=== PATIENT | female | born 1965 | race Caucasian/White ===

== ENCOUNTER 2018-09-07 14:11 | Observation (INO) | payer OTHER ==
[2018-09-07 14:53] LABS: Absolute Lymphocytes (CBC) 1.8 K/uL (0.7-4.9); Absolute Monocytes 0.4 K/uL (0.1-1.3); Absolute Neutrophil 3.1 K/uL (1.8-8.0); Basophils % 1.4 % (0-1.3); Eosinophils % 3.9 % (0-4.4); Hematocrit 42.7 % (36.0-45.0); Lymphocytes % 32.8 % (15.3-44.8); MPV 9.5 fL (7.6-11.3); Monocytes % 7.3 % (3.3-12.3); RBC Red Blood Cell Count 4.75 M/uL (3.86-4.86)
[2018-09-07 14:55] LABS: Protime INR 0.98
[2018-09-07] MEDS ORDERED: FENTANYL CITR 100 MCG/2 ML ONE ×2 (15:06→20:15)
[2018-09-07] MEDS ORDERED: ONDANSETRON 4 MG/2 ML VIAL ONE (15:06)
[2018-09-07 15:07] LABS: ALT/SGPT 18 U/L (12-78); AST/SGOT 14 U/L (15-37); Albumin 3.7 g/dL (3.4-5.0); Alkaline Phosphatase 47 U/L (45-117); BUN Blood Urea Nitrogen 21 mg/dL (7-18); Bicarbonate 28 mmol/L (21-32); Bilirubin Direct 0.1 mg/dL (0-0.2); Bilirubin Total 0.4 mg/dL (0.2-1.0); Glucose Level 77 mg/dL (74-106); Magnesium 2.1 mg/dL (1.8-2.4); NT PRO-BNP 90 pg/mL (<125); Protein, Total 6.8 g/dL (6.4-8.2); Sodium Level 145 mmol/L (136-145); Troponin (Emerg Dept Use Only) < 0.02 ng/mL (0.0-0.045)
[2018-09-07] MEDS ORDERED: ASPIRIN EC 325 MG TABLET PO ONE (15:08)
[2018-09-07 15:42] LABS: Thyroid Stimulating Hormone 5.95 uIU/mL (0.360-3.740)
--- NOTE | 2018-09-07 15:56 | RAD REPORT ---
EXAM DESCRIPTION: Radha Single View09/07/2018 3:33 pm CLINICAL HISTORY: Chest pain COMPARISON: none FINDINGS: The lungs appear clear of acute infiltrate. The heart is normal size IMPRESSION: No acute abnormalities displayed
--- NOTE | 2018-09-07 16:05 | ER ---
Nurse's Notes [facility] Name: Annamarie Miles Age: 52 yrs Sex: Female : 1965 Arrival Date: 09/07/2018 Time: 14:12 Bed 5 Private MD: Diagnosis: Chest pain, unspecified;Palpitations Presentation: 09/07 14:23 Presenting complaint: Patient states: Left sided CP that radiates into left side neck sg and left jaw as well as left shoulder, reports feeling indigestion and burning in the chest all morning, worse that the heart burn has ever been. Transition of care: patient was not received from another setting of care. Onset of symptoms was September 07, 2018. Risk Assessment: Do you want to hurt yourself or someone else? Patient reports no desire to harm self or others. Initial Sepsis Screen: Does the patient meet any 2 criteria? No. Patient's initial sepsis screen is negative. Does the patient have a suspected source of infection? No. Patient's initial sepsis screen is negative. Care prior to arrival: None. 14:23 Method Of Arrival: Wheelchair sg 14:23 Acuity: MICHELLE 2 sg Triage Assessment: 14:28 General: Appears in no apparent distress. uncomfortable, Behavior is cooperative, hj appropriate for age, anxious. Pain: Complains of pain in chest CVT RN: 14:24 LMP N/A - Hysterectomy sg Historical: - Allergies: 14:21 tramadol; sg 14:21 Codeine; sg - Home Meds: 14:21 levothyroxine 125 mcg tab 1 tab once daily [Active]; sg - PMHx: 14:21 v tach; Hashimotos; sg - PSHx: 14:21 Cholecystectomy; Hysterectomy; Knee surgery; Appendectomy; sg - Immunization history:: Adult Immunizations up to date. - Social history:: Smoking status: Patient/guardian denies using tobacco, Patient/guardian denies using alcohol. - Ebola Screening: : Patient negative for fever greater than or equal to 101.5 degrees Fahrenheit, and additional compatible Ebola Virus Disease symptoms Patient denies exposure to infectious person Patient denies travel to an Ebola-affected area in the 21 days before illness onset. Screenin:28 Abuse screen: Denies threats or abuse. Denies injuries from another. Nutritional hj screening: No deficits noted. Tuberculosis screening: No symptoms or risk factors identified. Fall Risk None identified. Assessment: 14:35 General: Appears in no apparent distress. uncomfortable, Behavior is calm, cooperative, hj appropriate for age. Pain: Complains of pain in chest Pain currently is 5 out of 10 on a pain scale. Quality of pain is described as heavy, pressure, Pain began 4 hours ago. Neuro: Level of Consciousness is awake, alert, obeys commands, Oriented to person, place, time, situation, Appropriate for age. Cardiovascular: Reports chest pain, Capillary refill < 3 seconds Patient's skin is warm and dry. Respiratory: Airway is patent Respiratory effort is even, unlabored, Respiratory pattern is regular, symmetrical. GI: No signs and/or symptoms were reported involving the gastrointestinal system. : No signs and/or symptoms were reported regarding the genitourinary system. EENT: No signs and/or symptoms were reported regarding the EENT system. Derm: No signs and/or symptoms reported regarding the dermatologic system. Musculoskeletal: No signs and/or symptoms reported regarding the musculoskeletal system. 15:18 Reassessment: Patient and/or family updated on plan of care and expected duration. Pain hj level reassessed. Patient is alert, oriented x 3, equal unlabored respirations, skin warm/dry/pink. awaiting results and POC; family in room;. 16:30 Reassessment: Patient and/or family updated on plan of care and expected duration. Pain hj level reassessed. Patient is alert, oriented x 3, equal unlabored respirations, skin warm/dry/pink. Patient states feeling better. Patient states symptoms have improved. 17:20 Reassessment: Patient and/or family updated on plan of care and expected duration. Pain hj level reassessed. Patient is alert, oriented x 3, equal unlabored respirations, skin warm/dry/pink. awaiting for room placement;. 17:48 Reassessment: Patient and/or family updated on plan of care and expected duration. Pain hj level reassessed. Patient is alert, oriented x 3, equal unlabored respirations, skin warm/dry/pink. awaiting for room;. 19:20 General: Appears in no apparent distress. Behavior is calm, cooperative, appropriate ea for age. Pain: Complains of pain in chest Pain currently is 4 out of 10 on a pain scale. Neuro: Level of Consciousness is awake, alert, obeys commands, Oriented to person, place, time, situation, Appropriate for age. Cardiovascular: Patient's skin is warm and dry. Respiratory: Airway is patent Respiratory effort is even, unlabored, Respiratory pattern is regular, symmetrical. GI: No signs and/or symptoms were reported involving the gastrointestinal system. Derm: Skin is pink, warm \T\ dry. Musculoskeletal: Circulation, motion, and sensation intact. 20:30 Reassessment: Patient and/or family updated on plan of care and expected duration. Pain ea level reassessed. Patient is alert, oriented x 3, equal unlabored respirations, skin warm/dry/pink. Patient states symptoms have improved. Vital Signs: 14:24 BP 143 / 82; Pulse 152 MON; Resp 19; Temp 97.9; Pulse Ox 100% on R/A; Weight 88.45 kg; hj Height 5 ft. 6 in. (167.64 cm); Pain 7/10; 14:27 BP 114 / 94; Pulse 104; Resp 18; Pulse Ox 100% on R/A; Pain 5/10; hj 15:19 BP 105 / 82; Pulse 77; Resp 18; Pulse Ox 100% on R/A; hj 17:48 BP 106 / 72; Pulse 76; Resp 18; Pulse Ox 100% on R/A; hj 19:30 BP 99 / 76; Pulse 58; Resp 18; Pulse Ox 100% ; ea 20:46 BP 108 / 78; Pulse 56; Resp 18; Pulse Ox 100% on R/A; ea 14:24 Body Mass Index 31.47 (88.45 kg, 167.64 cm) ED Course: 14:12 Patient arrived in ED. as 14:20 Moses Salazar, KIM is Primary Nurse. hj 14:24 Triage completed. sg 14:24 Arm band placed on. sg 14:29 Brenden Chaudhari NP is PHCP. pm1 14:29 Ketan Laguna MD is Attending Physician. pm1 14:35 Patient has correct armband on for positive identification. Placed in gown. Bed in low hj position. Call light in reach. Side rails up X 1. Adult w/ patient. 14:40 Initial lab(s) drawn, by me, sent to lab. Inserted saline lock: 20 gauge in left hj antecubital area, using aseptic technique. Blood collected. 14:42 Basic Metabolic Panel Sent. hj 14:42 CBC with Diff Sent. hj 14:43 LFT's Sent. hj 14:43 Magnesium Sent. hj 14:43 NT PRO-BNP Sent. hj 14:43 PT-INR Sent. hj 14:43 Troponin (emerg Dept Use Only) Sent. hj 14:43 CBC with Automated Diff Sent. hj 14:43 Basic Metabolic Panel Sent. hj 14:43 Magnesium Sent. hj 14:43 Liver (Hepatic) Function Sent. hj 15:33 XRAY Chest (1 view) In Process Unspecified. EDMS 16:04 Peter Dale MD is Hospitalizing Provider. pm1 19:50 No provider procedures requiring assistance completed. Patient admitted, IV remains in ea place. Administered Medications: 14:51 Drug: Aspirin 325 mg Route: PO; hj 15:04 Follow up: Response: No adverse reaction hj 15:05 Follow up: Response: No adverse reaction hj 14:53 Drug: fentaNYL (PF) 50 mcg Route: IVP; Site: left antecubital; hj 15:06 Follow up: Response: No adverse reaction hj 14:53 Drug: Zofran 4 mg Route: IVP; Site: left antecubital; hj 15:06 Follow up: Response: No adverse reaction hj 15:52 Drug: fentaNYL (PF) 50 mcg Route: IVP; Site: left antecubital; hj 15:55 Follow up: Response: No adverse reaction; Pain is decreased hj 16:16 Drug: Lovenox 1 mg/kg Route: Sub-Q; Site: left upper arm; pc1 16:20 Follow up: Response: No adverse reaction pc1 20:08 Drug: fentaNYL (PF) 25 mcg Route: IVP; Site: left antecubital; ea Outcome: 16:04 Decision to Hospitalize by Provider. pm1 19:10 Instructed on the need for admit. ea 19:51 Admitted to Med/surg accompanied by tech, room 416, with chart, Report called to ea Receiving nurse on fourth floor 19:51 Condition: stable 20:47 Patient left the ED. ea Signatures: Dispatcher [employer] EDMS Kaden Correa RN RN sg Martinez, Amelia as Joaquin, Henry, RN RN hj Marinas, Patrick, RELIEF MATE RELIEF MATE pm1 Liz Lewis RN RN ea Cantu, Patrick pc1 Corrections: (The following items were deleted from the chart) 14:25 14:24 LMP N/A - Irregular menses sg sg 16:16 14:24 BP 143 / 82; Pulse 152bpm; MonitorResp 19bpm; Pulse Ox 100% RA; Pain 7/10; sg hj
--- NOTE | 2018-09-07 16:05 | EDPHYS ---
Physician Documentation [facility] Name: Annamarie Miles Age: 52 yrs Sex: Female : 1965 Arrival Date: 09/07/2018 Time: 14:12 Bed 5 Private MD: ED Physician Ketan Laguna HPI: 09/07 15:00 This 52 yrs old Female presents to ER via Wheelchair with complaints of pm1 Elevated Heart Rate. 15:00 The patient or guardian reports chest pain that is located primarily in the mid-sternal pm1 area. Onset: 2 hours prior to arrival. The pain radiates to right jaw. Associated signs and symptoms: Pertinent positives: nausea, palpitations, Pertinent negatives: cough, shortness of breath, vomiting. The chest pain is described as burning. Duration: The patient or guardian reports a single episode, that is still ongoing. Modifying factors: The symptoms are alleviated by nothing. the symptoms are aggravated by nothing. Severity of pain: in the emergency department the pain is a 5 / 10. The patient has not experienced similar symptoms in the past. The patient has not recently seen a physician. Patient with complaints of palpitations, elevated heart rate two hours prior to arrival while she was gardening. Has a history of tachycardia that is managed with Valsalva maneuvers. Patient with burning chest pain on both sides of her sternum that radiates to her right jaw.. 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 - Social history:: Smoking status: Patient/guardian denies using tobacco, Patient/guardian denies using alcohol. - Ebola Screening: : Patient negative for fever greater than or equal to 101.5 degrees Fahrenheit, and additional compatible Ebola Virus Disease symptoms Patient denies exposure to infectious person Patient denies travel to an Ebola-affected area in the 21 days before illness onset. ROS: 15:00 Constitutional: Negative for fever, chills, and weight loss, Eyes: Negative for injury, pm1 pain, redness, and discharge, ENT: Negative for injury, pain, and discharge, Neck: Negative for injury, pain, and swelling. 15:00 Back: Negative for injury and pain, : Negative for injury, bleeding, discharge, and swelling, MS/Extremity: Negative for injury and deformity, Skin: Negative for injury, rash, and discoloration, Neuro: Negative for headache, weakness, numbness, tingling, and seizure. 15:00 Cardiovascular: Positive for chest pain, palpitations, Negative for edema, orthopnea. 15:00 Respiratory: Positive for shortness of breath, Negative for cough, sputum production, wheezing. 15:00 Abdomen/GI: Positive for nausea, Negative for abdominal pain, vomiting, diarrhea. Exam: 15:00 Constitutional: This is a well developed, well nourished patient who is awake, alert, pm1 and in no acute distress. Head/Face: Normocephalic, atraumatic. Eyes: Pupils equal round and reactive to light, extra-ocular motions intact. Lids and lashes normal. Conjunctiva and sclera are non-icteric and not injected. Cornea within normal limits. Periorbital areas with no swelling, redness, or edema. ENT: Nares patent. No nasal discharge, no septal abnormalities noted. Tympanic membranes are normal and external auditory canals are clear. Oropharynx with no redness, swelling, or masses, exudates, or evidence of obstruction, uvula midline. Mucous membranes moist. Neck: Trachea midline, no thyromegaly or masses palpated, and no cervical lymphadenopathy. Supple, full range of motion without nuchal rigidity, or vertebral point tenderness. No Meningismus. Chest/axilla: Normal chest wall appearance and motion. Nontender with no deformity. No lesions are appreciated. Cardiovascular: Regular rate and rhythm with a normal S1 and S2. No gallops, murmurs, or rubs. Normal PMI, no JVD. No pulse deficits. Respiratory: Lungs have equal breath sounds bilaterally, clear to auscultation and percussion. No rales, rhonchi or wheezes noted. No increased work of breathing, no retractions or nasal flaring. Abdomen/GI: Soft, non-tender, with normal bowel sounds. No distension or tympany. No guarding or rebound. No evidence of tenderness throughout. Back: No spinal tenderness. No costovertebral tenderness. Full range of motion. Skin: Warm, dry with normal turgor. Normal color with no rashes, no lesions, and no evidence of cellulitis. MS/ Extremity: Pulses equal, no cyanosis. Neurovascular intact. Full, normal range of motion. 15:00 Neuro: Orientation: is normal, Motor: is normal, moves all fours. Vital Signs: 14:24 BP 143 / 82; Pulse 152 MON; Resp 19; Temp 97.9; Pulse Ox 100% on R/A; Weight 88.45 kg; hj Height 5 ft. 6 in. (167.64 cm); Pain 7/10; 14:27 BP 114 / 94; Pulse 104; Resp 18; Pulse Ox 100% on R/A; Pain 5/10; hj 15:19 BP 105 / 82; Pulse 77; Resp 18; Pulse Ox 100% on R/A; hj 17:48 BP 106 / 72; Pulse 76; Resp 18; Pulse Ox 100% on R/A; hj 19:30 BP 99 / 76; Pulse 58; Resp 18; Pulse Ox 100% ; ea 20:46 BP 108 / 78; Pulse 56; Resp 18; Pulse Ox 100% on R/A; ea 14:24 Body Mass Index 31.47 (88.45 kg, 167.64 cm) hj MDM: 14:35 Patient medically screened. pm1 16:03 Data reviewed: vital signs. Data interpreted: Pulse oximetry: on room air is 100 %. pm1 Interpretation: normal. Counseling: I had a detailed discussion with the patient and/or guardian regarding: the historical points, exam findings, and any diagnostic results supporting the discharge/admit diagnosis, lab results, radiology results, the need for further work-up and treatment in the hospital. 09/07 14:35 Order name: Basic Metabolic Panel pm1 09/07 14:35 Order name: CBC with Diff pm09/07 14:35 Order name: LFT's pm09/07 14:35 Order name: Magnesium pm1 09/07 14:35 Order name: NT PRO-BNP; Complete Time: 15:46 pm1 09/07 14:35 Order name: PT-INR; Complete Time: 15:46 pm1 09/07 14:35 Order name: Troponin (emerg Dept Use Only); Complete Time: 15:46 pm1 09/07 14:36 Order name: Basic Metabolic Panel; Complete Time: 15:46 EDMS 09/07 14:36 Order name: CBC with Automated Diff; Complete Time: 15:46 EDMS 09/07 14:36 Order name: Liver (Hepatic) Function; Complete Time: 15:46 EDMS 09/07 14:36 Order name: Magnesium; Complete Time: 15:46 EDMS 09/07 14:50 Order name: TSH; Complete Time: 16:00 pm1 09/07 15:43 Order name: T4 Free; Complete Time: 16:00 EDMS 09/07 16:01 Order name: Urine Dipstick--Ancillary (enter results); Complete Time: 16:49 aa5 09/07 14:35 Order name: XRAY Chest (1 view); Complete Time: 16:00 pm1 09/07 14:35 Order name: EKG; Complete Time: 14:37 pm1 09/07 14:35 Order name: Cardiac monitoring; Complete Time: 14:42 pm1 09/07 14:35 Order name: EKG - Nurse/Tech; Complete Time: 14:42 pm1 09/07 14:35 Order name: IV Saline Lock; Complete Time: 14:42 pm1 09/07 14:35 Order name: Labs collected and sent; Complete Time: 14:42 pm1 09/07 14:35 Order name: O2 Per Protocol; Complete Time: 14:42 pm1 09/07 14:35 Order name: O2 Sat Monitoring; Complete Time: 14:42 pm1 Administered Medications: 14:51 Drug: Aspirin 325 mg Route: PO; hj 15:04 Follow up: Response: No adverse reaction hj 15:05 Follow up: Response: No adverse reaction hj 14:53 Drug: fentaNYL (PF) 50 mcg Route: IVP; Site: left antecubital; hj 15:06 Follow up: Response: No adverse reaction hj 14:53 Drug: Zofran 4 mg Route: IVP; Site: left antecubital; hj 15:06 Follow up: Response: No adverse reaction hj 15:52 Drug: fentaNYL (PF) 50 mcg Route: IVP; Site: left antecubital; hj 15:55 Follow up: Response: No adverse reaction; Pain is decreased hj 16:16 Drug: Lovenox 1 mg/kg Route: Sub-Q; Site: left upper arm; pc1 16:20 Follow up: Response: No adverse reaction pc1 20:08 Drug: fentaNYL (PF) 25 mcg Route: IVP; Site: left antecubital; ea Disposition: 09/07/18 16:04 Hospitalization ordered by Peter Dale for Observation. Preliminary diagnosis are Chest pain, unspecified, Palpitations. - Bed requested for Telemetry/MedSurg (observation). - Status is Observation. ea - Condition is Stable. - Problem is new. - Symptoms have improved. UTI on Admission? No Addendum: 09/10/2018 19:17 Co-signature as Attending Physician, Ketan Laguna MD. r n Signatures: Dispatcher [employer] EDJennifer Sparks RN Kaden Green RN Ketan Sabillon MD MD rn Joaquin, Henry RN Brenden Gama, WIRER HELPER WIRER HELPER pm1 Liz Lewis RN RN ea Cantu, Patrick pc1 Corrections: (The following items were deleted from the chart) 09/07 16:05 16:04 Hospitalization Ordered by Peter Dale MD for Observation. Preliminary diagnosis pm1 is Chest pain, unspecified. Bed requested for Telemetry/MedSurg (observation). Status is Observation. Condition is Stable. Problem is new. Symptoms have improved. UTI on Admission? No. pm1 18:38 16:05 09/07/2018 16:04 Hospitalization Ordered by Peter Dale MD for Observation. dw Preliminary diagnosis is Chest pain, unspecified; Palpitations. Bed requested for Telemetry/MedSurg (observation). Status is Observation. Condition is Stable. Problem is new. Symptoms have improved. UTI on Admission? No. pm1 20:47 18:38 09/07/2018 16:04 Hospitalization Ordered by Peter Dale MD for Observation. ea Preliminary diagnosis is Chest pain, unspecified; Palpitations. Bed requested for Telemetry/MedSurg (observation). Status is Observation. Condition is Stable. Problem is new. Symptoms have improved. UTI on Admission? No. dw
[2018-09-07] MEDS ORDERED: ENOXAPARIN 100 MG/ML SYR SQ ONE (16:29)
[2018-09-07 16:37] LABS: Urine Blood NEGATIVE (NEG); Urine Glucose NEGATIVE (NEG); Urine Protein NEGATIVE (NEG)
[2018-09-07] MEDS ORDERED: MORPHINE 4 MG/ML SYR IV PRN (21:01)
[2018-09-07] MEDS ORDERED: NITROGLYCERIN 0.4 MG/TAB SL PRN (21:01)
[2018-09-07] MEDS ORDERED: ACETAMINOPHEN 500 MG TAB PO PRN (21:01)
[2018-09-07 21:06] VITALS: BMI 32.1
[2018-09-07] MEDS: METOPROLOL TAR 50 MG TAB PO SCH (22:49)
[2018-09-07] MEDS: ATORVASTATIN 40 MG TAB PO SCH (22:49)
--- NOTE | 2018-09-08 02:26 | HP ---
Date of Admission: 09/07/2018 Primary Care Physician: Dr. Hoff. Consultants: Mahendra Hopper MD, with Cardiology. Chief Complaint: Chest pain, palpitations. History Of Present Illness: The patient is a 52-year-old female with past medical history of hypothy roidism, who was in her usual state of health until day of admission when the patient was working in the flower bed, lifted a rock, and felt sudden onset of chest pain which radiated to her right arm up to the neck and jaw. The patient also reported some palpitations. Her Apple Watch notified her km t her heart rate was in the 170s. The patient also reports some gastric discomfort, nausea, and took a ranitidine; however, had no improvement. The patient's symptoms were intermittent; however, never completely resolved, and due to worsening symptoms which were moderate in nature, the patient came i nto the ER for further evaluation. She denies any fevers, chills, ill contacts, cough, or sputum pro duction. In the ER, her vital signs were stable. Her heart rate was elevated at 152. The patient's workup revealed negative cardiac enzymes. Her TSH, however, was elevated at 5.9, free T4 was normal . Her chest x-ray was also clear. Her EKG did show some nonspecific abnormalities. The patient was given aspirin, full-dose Lovenox, and referred for admission. When the patient was seen in the ER, she was awake, alert, oriented x3, in some mild discomfort. Past Medical History: Josee's. Surgical History: Cholecystectomy, appendectomy, hysterectomy with unilateral oophorectomy and salpi ngectomy, knee surgery, ganglion cyst removal, bilateral carpal tunnel surgery, C-spine fusion. Allergies: TO TRAMADOL AND CODEINE. Medications: List reviewed. Levothyroxine 125 mcg daily. Family History: Mother has hypertension and stroke. Social History: The patient denies any tobacco use. Does drink occasionally. 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 The patient has a daughter. Review of Systems: An 11-point system reviewed, negative except as per HPI. Physical Examination: Vital Signs: Blood pressure 143/82, pulse 152, respirations 19, O2 of 100% on room air. General: Awake, alert, oriented x3. Some mild distress. Ill-appearing female. HEENT: Normocephalic, atraumatic. PERRLA, EOMI. Moist mucous membranes. Oropharynx is clear. Con junctivae anicteric. Neck: Supple. No JVD. Trachea midline. CV: S1, S2. Sinus tachycardia. Peripheral pulses present. No murmurs. Respiratory: Moving air well bilaterally. No wheezing or stridor. No use of accessory muscles. Gastrointestinal: Abdomen is soft, nontender, nondistended. Positive bowel sounds. No guarding or rigidity. No palpable masses. Extremities: No clubbing, cyanosis, or edema. No calf tenderness. Neuro: Cranial nerves 2 through 12 intact grossly. No focal neurological deficits. Speech is raudel l. Strength is 5/5 bilateral upper and lower extremities. Sensation intact to light touch. Skin: No rashes. Normal skin turgor. Psych: Mood is okay. Affect is full. Insight and judgment are good. Laboratory Data: UA is negative. Sodium 145, potassium 4, chloride 113, CO2 of 28, BUN 21, creatini ne 1.10, glucose 77, calcium 8.7, magnesium 2.1, total bilirubin 0.4, AST 14, ALT 18, alkaline phosph atase 47. Troponin less than 0.02. BNP 90, albumin 3.7, total protein 6.8. TSH is 5.9, free T4 0.9 3. INR 0.98. WBC 5.6, H and H 14.3 and 42.7, platelets 245. Chest x-ray personally reviewed, shows no acute abnormalities noted. Assessment And Plan: A 52-year-old female with: 1.Chest pain, rule out acute coronary syndrome. Initial cardiac enzymes negative. We will repeat s erial cardiac enzymes and EKG. We will start on beta-bertin, ARJUN inhibitor, and statin. We will ch alessandra lipid panel. Cardiology has been consulted. We will obtain echocardiogram in a.m. 2.Palpitations. We will continue monitoring in telemetry. TSH is elevated. May need to adjust pat ient's thyroid dose. 3.Josee thyroiditis. The patient is on levothyroxine. TSH elevated. Free T4 is normal. 4.Deep vein thrombosis prophylaxis with Lovenox. Plan: Ad[facility] LEORA Voice ID: [id number]
[2018-09-08 04:52] LABS: Absolute Lymphocytes (CBC) 2.1 K/uL (0.7-4.9); Absolute Monocytes 0.5 K/uL (0.1-1.3); Absolute Neutrophil 2.1 K/uL (1.8-8.0); Basophils % 1.4 % (0-1.3); Eosinophils % 5.9 % (0-4.4); Hematocrit 39.5 % (36.0-45.0); Lymphocytes % 41.6 % (15.3-44.8); MPV 9.8 fL (7.6-11.3); Monocytes % 10.2 % (3.3-12.3); RBC Red Blood Cell Count 4.33 M/uL (3.86-4.86)
[2018-09-08 05:04] LABS: Potassium 4.1 mmol/L (3.5-5.1)
[2018-09-08] MEDS ORDERED: NA CHLORIDE 0.9% 500 ML IV ONE ×2 (06:04→11:21)
--- NOTE | 2018-09-08 07:29 | EKG ---
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
[2018-09-08] MEDS ORDERED: REGADENOSON 0.4 MG/5 ML SYR IV ONE (08:28)
[2018-09-08] MEDS: METOPROLOL TAR 50 MG TAB PO SCH (09:00)
--- NOTE | 2018-09-08 10:29 | RAD REPORT ---
EXAM DESCRIPTION: NM - Rest Stress Cardiac Imaging - 09/08/2018 10:08 am CLINICAL HISTORY: Chest pain. COMPARISON: None. TECHNIQUE: The patient was administered approximately 10mCi of Tc 99m Sestamibi prior to resting SPE CT imaging of the heart. The patient was then administered approximately 30 mCi of Tc 99m Sestamibi f ollowing exercise or pharmacologic stress. Multiplanar SPECT images were reviewed. FINDINGS: There is uniformity of radiotracer uptake involving the entire left ventricular myocardiu m on rest and stress images. The left ventricular ejection fraction equals 72% IMPRESSION: Negative for a myocardial perfusion defect
[2018-09-08] MEDS: ASPIRIN EC 81 MG TAB PO SCH (11:04)
[2018-09-08] MEDS: ENOXAPARIN 40 MG/0.4 ML SQ SCH (11:04)
[2018-09-08] MEDS: NACHLORIDE 0.45% 1,000 ML IV SCH ×2 (12:05→20:59)
[2018-09-08] MEDS ORDERED: ONDANSETRON 4 MG/2 ML VIAL IV PRN (12:07)
--- NOTE | 2018-09-08 12:15 | EKG ---
Test Date: 2018-09-08 Test Time: 09:32:58 Hose Stripper: CATHLEEN MEASUREMENT RESULTS: Intervals: Rate: 75 NV: 142 QRSD: 68 QT: 400 QTc: 446 [place]: P: 82 NV: 142 QRS: 14 T: 102 INTERPRETIVE STATEMENTS: Normal sinus rhythm Low voltage QRS Nonspecific ST and T wave abnormality Abnormal ECG Compared to ECG 09/07/2018 14:27:18 Low QRS voltage now present Sinus tachycardia no longer present Electronically Signed On 09-08-18 12:15:03 CDT by Herve Rodriguez
--- NOTE | 2018-09-08 13:58 | P.PN ---
Subjective Date of Service: 09/08/18 Primary Care Provider: Dr. Hoff Chief Complaint: Chest pain Subjective: Improving (Blood pressures were low this morning. Patient with lightheadedness.) Physical Examination - Vital Signs Temperature: 98.0 F Blood Pressure: 99/67 Pulse: 74 Respirations: 18 Pulse Ox (%): 98 - Physical Exam General: Alert, In no apparent distress, Oriented x3, Cooperative HEENT: Atraumatic Neck: Supple Respiratory: Clear to auscultation bilaterally, Normal air movement Cardiovascular: Normal pulses, Regular rate/rhythm Gastrointestinal: Normal bowel sounds, Soft and benign, Non-distended, No tenderness, No masses, No rebound, No guarding Musculoskeletal: No erythema, No tenderness, No warmth Integumentary: No tenderness/swelling, No erythema, No warmth, No cyanosis Neurological: Normal speech, Normal strength at 5/5 x4 extr, Normal tone, Normal affect - Studies Laboratory Data (last 24 hrs) 09/07/18 14:40: PT 11.6, INR 0.98 09/07/18 14:40: WBC 5.6, Hgb 14.3, Hct 42.7, Plt Count 245 09/07/18 14:40: Sodium 145, Potassium 4.0, BUN 21 H, Creatinine 1.10, Glucose 77 , Magnesium 2.1, Total Bilirubin 0.4, AST 14 L, ALT 18, Alkaline Phosphatase 47 Medications List Reviewed: Yes Assessment & Plan Discharge Plan: Home Plan to discharge in: 24 Hours Physician Review Additional Text: Impression: Chest pain with palpitations likely with underlying supraventricular tachycardia Hypotension with dehydration complicated with medication Hypothyroidism Plan: Chest pain with palpitations likely with underlying supraventricular tachycardia : Case discussed with cardiology. Patient with supraventricular tachycardia. Patient will require Event monitor as an outpatient. Blood pressure is low today likely related to blood pressure medication-metoprolol which was initiated last night. Will discontinue metoprolol. Cardiac stress tests shows no stress-induced ischemia. Patient given IV fluids. Will monitor closely. Once blood pressure better controlled in stable the patient can be discharged and follow up with cardiology. Anticipate discharge in the next 24 hr. Hypotension with dehydration complicated with medication: Continue as above. Will discontinue metoprolol. Will monitor closely. Hypothyroidism: Continue with home medication. Time Spent Managing Pts Care (In Minutes): 55
[2018-09-08] MEDS ORDERED: ONDANSETRON 4 MG/2 ML VIAL IV SCH (14:00)
--- NOTE | 2018-09-08 14:03 | CON ---
A 52-year-old woman only sinus rhythm documented on EKG. She has spells of feeling her heart race up to about 170 beats per minute. They occur on average a couple of times a month, most last from a few minutes to 30 minutes, but yesterday spell lasted 2 hours. The patient decided to come to the ER and on the ride in, her rhythm seemed to go back to normal.All symptoms have resolved since she has been in the hospital, normal enzymes, normal EKG, normal blood count. The patient takes thyroid medicine. Her TSH is 5.95, which is barely above normal. She has a normal free T3. She does have mild elevation of total cholesterol. Her LDL cholesterol is within range for a low risk patient. The patient does not have a history of myocardial infarction, stroke, diabetes, hypertension or dyslipidemia. She uses no tobacco. No alcohol. No illegal drugs. Physical Examination: General: She appears to be at her stated age of 52, 5 feet 6 inch, 199 pounds. Obese, alert, oriented, pleasant, not in distress. Lungs: Clear. Carotids: No bruit. Cardiac exam: Normal. Abdomen: Soft. Extremities: Normal. Laboratory Data: Her EKGs, all of them that we have which is just yesterday is normal. Impression: The patient probably has paroxysmal supraventricular tachycardia. I think she needs to have an event monitor. I think she could be discharged today. She is having a stress test. If all those tests turned out okay, she can be discharged getting outpatient 30 day event monitor. ROXANA Voice ID: [id number] Report ID: [id number] CHU
--- NOTE | 2018-09-08 15:15 | TREADPHA ---
DX: CHEST PAIN Date of Study: 09/08/18 Ht: 5 6 Wt: 199 lb 3.2 oz Consulting Physician: NATALIE MEDICATIONS: TYLENOL, ASPIRIN, LIPITOR, LOPRESSOR, NITROSTAT. HISTORY: 52 YEAR FEMALE, HISTORY: VENTRICULAR TACHYCARDIA, HASHIMOTOS, NON-SMOKER, NON-DRINKER. PHYSICIAL EXAMINATION: RESTING B.P.: 109/80 RESTING H.R.: 72 RESTING EKG: LOW VOLTAGE, OTHERWISE NORMAL. PROTOCOL: LEXISCAN EXERCISE TIME: 3:30 B.P. AT PEAK STRESS: 109/78 IMPRESSION: LEXISCAN INJECTED, FOLLOWED BY CARDIOLITE PER PROTOCOL, NO SUPRAVENTRICULAR TACHYCARDIA, VENTRICULAR TACHYCARDIA, PREMATURE ATRIAL COMPLEXS, PREMATURE VENTRICULAR TACHYCARDIA. NO CHEST PAIN REPORTED. NON-DIAGNOSTIC ELECTROCARDIOGRAM WITH LEXISCAN STRESS.
--- NOTE | 2018-09-08 16:26 | ECHO ---
HEIGHT: 5 ft 6 in WEIGHT: 199 lb 3.2 oz DATE OF STUDY: 09/08/[address]: Peter Dale MD 2-DIMENSIONAL: YES M.MODE: YES DOPPLER: YES COLOR FLOW: YES TDS: PORTABLE: DEFINITY: BUBBLE STUDY: DIAGNOSIS: CHEST PAIN CARDIAC HISTORY: CATHERIZATION: NO SURGERY: NO PROSTHETIC VALVE: NO PACEMAKER: NO MEASUREMENTS (cm) DIASTOLIC (NORMALS) SYSTOLIC (NORMALS) IVSd 1.0 (0.6-1.2) LA Diam 3.4 (1.9-4.0) LVEF 78% LVIDd 4.6 (3.5-5.7) LVIDs 2.5 (2.0-3.5) %FS 47% LVPWd 1.2 (0.6-1.2) Ao Diam 2.7 (2.0-3.7) 2 DIMENSIONAL ASSESSMENT: RIGHT ATRIUM: NORMAL LEFT ATRIUM: NORMAL RIGHT VENTRICLE: NORMAL LEFT VENTRICLE: NORMAL TRICUSPID VALVE: NORMAL MITRAL VALVE: NORMAL PULMONIC VALVE: NORMAL AORTIC VALVE: NORMAL PERICARDIAL EFFUSION: NONE AORTIC ROOT: NORMAL LEFT VENTRICULAR WALL MOTION: NORMAL DOPPLER/COLOR FLOW: MILD TRICUSPID REGURGITATION. NORMAL RIGHT VENTRICULAR SYSTOLIC PRESSURE. COMMENTS: NORMAL TWO DIMENSIONAL ECHOCARDIOGRAM. MILD TRICUSPID REGURGITATION. TECHNOLOGIST: MARYANN MATTSON
[2018-09-08] MEDS ORDERED: NA CHLORIDE 0.9% 250 ML IV ONE (18:21)
[2018-09-08] MEDS ORDERED: PROMETHAZINE 25 MG/ML VIAL IV PRN (20:29)
[2018-09-08] MEDS: ATORVASTATIN 40 MG TAB PO SCH (20:58)
[2018-09-09] MEDS ORDERED: LEVOTHYROXINE SOD 0.125 MG TAB PO SCH (06:30)
[2018-09-09] MEDS: NACHLORIDE 0.45% 1,000 ML IV SCH (08:13)
[2018-09-09] MEDS: ASPIRIN EC 81 MG TAB PO SCH (08:13)
[2018-09-09] MEDS: ENOXAPARIN 40 MG/0.4 ML SQ SCH (08:13)
--- NOTE | 2018-09-09 09:44 | P.DS ---
Admission Date: 09/07/18 Discharge Date: 09/09/18 Primary Care Provider: Fabiola Hoff NP Disposition: ROUTINE DISCHARGE Discharge Condition: GOOD Reason for Admission: Chest pain Consultations: Cardiology-Dr. Rodriguez Procedures: ECHO: Ejection fraction 78% LEFT VENTRICULAR WALL MOTION: NORMAL DOPPLER/COLOR FLOW: MILD TRICUSPID REGURGITATION. NORMAL RIGHT VENTRICULAR SYSTOLIC PRESSURE. COMMENTS: NORMAL TWO DIMENSIONAL ECHOCARDIOGRAM. MILD TRICUSPID REGURGITATION. Cardiac stress test: COMPARISON: None. TECHNIQUE: The patient was administered approximately 10mCi of Tc 99m Sestamibi prior to resting SPECT imaging of the heart. The patient was then administered approximately 30 mCi of Tc 99m Sestamibi following exercise or pharmacologic stress. Multiplanar SPECT images were reviewed. FINDINGS: There is uniformity of radiotracer uptake involving the entire left ventricular myocardium on rest and stress images. The left ventricular ejection fraction equals 72% IMPRESSION: Negative for a myocardial perfusion defect CXR: COMPARISON: none FINDINGS: The lungs appear clear of acute infiltrate. The heart is normal size IMPRESSION: No acute abnormalities displayed Medical problem list: Chest pain with palpitations secondary to paroxysmally supraventricular tachycardia Hypotension with dehydration complicated with medication Hypothyroidism Brief History of Present Illness: 52-year-old female presented to emergency room with chest pain and palpitations. Her apple watch notified her that her rate was in the 170s. She reported some nausea and vomiting at that time. Initial cardiac enzymes unremarkable. No significant ST changes noted. Patient came to the ER for further evaluation. Patient was admitted for further evaluation. Hospital Course: Patient presented with chest pain and palpitations. Patient seen and evaluated by Cardiology. Patient likely with paroxysmally supraventricular tachycardia. Cardiac enzymes unremarkable. Echocardiogram and cardiac stress test also unremarkable. No further cardiac intervention was required. Patient had been given metoprolol in the hospital stay. This was discontinued due to low blood pressure. Patient stable at discharge. Orthostatics unremarkable at discharge. No significant chest pain or tachycardia noted. Patient will follow up with cardiology this week as the patient will require cardiac event monitor as an outpatient. Further evaluation and treatment can be done by cardiology. At discharge patient may continue with aspirin 81 mg daily. Patient with hypothyroidism. Patient may continue with current dosage of medication. This can be followed closely by her PCP. Patient with mild elevation in LDL. This can be further monitored and evaluated by Cardiology. Vital Signs/Physical Exam: Temp Pulse Resp BP Pulse Ox 97.4 F 85 20 101/57 L 95 09/09/18 04:00 09/09/18 04:00 09/09/18 04:00 09/09/18 04:00 09/09/18 04:00 General: Alert, In no apparent distress, Oriented x3, Cooperative HEENT: Atraumatic Neck: Supple Respiratory: Clear to auscultation bilaterally, Normal air movement Cardiovascular: Normal pulses, Regular rate/rhythm Gastrointestinal: Normal bowel sounds, Soft and benign, Non-distended, No tenderness, No masses, No rebound, No guarding Musculoskeletal: No erythema, No tenderness, No warmth Integumentary: No tenderness/swelling, No erythema, No warmth, No cyanosis Neurological: Normal speech, Normal strength at 5/5 x4 extr, Normal tone, Normal affect Laboratory Data at Discharge: WBC 5.1 K/uL (4.3-10.9) 09/08/18 03:24 Hgb 13.1 g/dL (12.0-15.0) 09/08/18 03:24 Hct 39.5 % (36.0-45.0) 09/08/18 03:24 Plt Count 221 K/uL (152-406) 09/08/18 03:24 PT 11.6 SECONDS (9.5-12.5) 09/07/18 14:40 INR 0.98 09/07/18 14:40 Sodium 145 mmol/L (136-145) 09/08/18 03:24 Potassium 4.1 mmol/L (3.5-5.1) 09/08/18 03:24 BUN 20 mg/dL (7-18) H 09/08/18 03:24 Creatinine 0.81 mg/dL (0.55-1.3) 09/08/18 03:24 Glucose 91 mg/dL (74-106) 09/08/18 03:24 Magnesium 2.1 mg/dL (1.8-2.4) 09/07/18 14:40 Total Bilirubin 0.4 mg/dL (0.2-1.0) 09/07/18 14:40 AST 14 U/L (15-37) L 09/07/18 14:40 ALT 18 U/L (12-78) 09/07/18 14:40 Alkaline Phosphatase 47 U/L (45-117) 09/07/18 14:40 Troponin I 0.02 ng/mL (0.0-0.045) 09/08/18 03:24 Triglycerides 150 mg/dL (<150) 09/08/18 03:24 Cholesterol 201 mg/dL (<200) H 09/08/18 03:24 HDL Cholesterol 48 mg/dL (40-60) 09/08/18 03:24 Cholesterol/HDL Ratio 4.19 09/08/18 03:24 Home Medications: Levothyroxine Sodium [Levoxyl] 1 tab PO DAILY 09/07/18 Aspirin [Aspirin EC 81 MG] 81 mg PO DAILY #90 tablet. 09/09/18 New Medications: Aspirin [Aspirin EC 81 MG] 81 mg PO DAILY #90 tablet. Patient Discharge Instructions: 1. Patient will follow up with her PCP in 1 week to follow this hospitalization. 2. Patient presented with chest pain and palpitations. Patient seen and evaluated by Cardiology. Patient likely with paroxysmally supraventricular tachycardia. Cardiac enzymes unremarkable. Echocardiogram and cardiac stress test also unremarkable. No further cardiac intervention was required. Patient had been given metoprolol in the hospital stay. This was discontinued due to low blood pressure. Patient stable at discharge. Orthostatics unremarkable at discharge. No significant chest pain or tachycardia noted. Patient will follow up with cardiology this week as the patient will require cardiac event monitor as an outpatient. Further evaluation and treatment can be done by cardiology. At discharge patient may continue with aspirin 81 mg daily. 3. Patient with hypothyroidism. Patient may continue with current dosage of medication. This can be followed closely by her PCP. 4. Patient with mild elevation in LDL. This can be further monitored and evaluated by Cardiology. Diet: AHA Activity: Ad néstor Time spent managing pt's care (in minutes): 55
[2018-09-09 09:48] VITALS: BP 108/68; TEMP 97.7
[2018-09-09 10:11] VITALS: O2SAT 94
== END 2018-09-09 11:08 | disposition home or self-care (01) ==
LOC: ER 14:11 → ERHOLD 17:23 → 4TH 19:51
PROVIDERS: ADMIT Family Medicine; ATTEND Family Medicine
DX: R07.9 Chest pain, unspecified (principal); I47.1 Supraventricular tachycardia; I95.9 Hypotension, unspecified; E86.0 Dehydration; E03.9 Hypothyroidism, unspecified; E06.3 Autoimmune thyroiditis
CPT/HCPCS: 36415; 71045; 78452; 80048; 80061; 80076; 81003; 83735; 83880; 84439; 84443; 84484; 85025; 85610; 93005; 93017; 93306; 94760; 96372; 96374; 96375; 99285; A9500; G0378; J1650; J2405; J2550; J2785; J3010

== ENCOUNTER 2022-09-14 07:51 | Emergency (ER) | payer BC, OTHER ==
--- OUTSIDE RECORDS SUMMARY | 2022-09-14 07:54 | XMS REPORT | Continuity of Care Document ---
:1965 Author Organization [facility] t Address [address] [place] [address] [place] [id number] Care Team Providers Name Role Phone SANTIHANANE Primary Care Physician Unavailable [facility] Attending Clinician Unavailable SERJIO WRIGHT Attending Clinician Unavailable Anuradha Attending Clinician Unavailable Lab, Ang - Db Attending Clinician Unavailable Serjio Wright MD Attending Clinician Doctor Unassigned, [place] Attending Clinician Unavailable AIDE LEONARDO Attending Clinician Unavailable CRISTINA MONTIEL Attending Clinician Unavailable Marco Greene Attending Clinician [facility] Admitting Clinician Unavailable Anuradha Admitting Clinician Unavailable Payers Payer Name Policy Type Policy Number Effective Date Expiration Date jennifer 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 zalea itis of itis of 1-09 [facility] right knee Right Knee 00:00: di c joint Joint 00 Sports Medicin e No known No known Disease Unive rs active active ity of problems problems [facility] Allergies, Adverse Reactions, Alerts Allergy Allergy Status Severity Reaction(s) Onset Inactive Treating Comm ents Source Name Type Date Date Clinician Gluten Propensi Active GI Methodi ty to Intolerance 01-16 adverse 00:00: Hospita reaction 00 l s to drug Tramadol Propensi Active Anaphylaxis 2018-0 M ethodi ty to 01-16 adverse 00:00: Hospita reaction 00 l s to drug Tramadol Propensi Active Anaphylaxis 2018-0 U nivers ty to 01-16 ity of adverse 00:00: [place] reaction Medical s Branch Gluten Propensi Active Diarrhea 2018-0 Univer s ty to 01-16 ity of adverse 00:00: [place] reaction Medical s Branch TRAMADOL DRUG Active High Anaphylaxis 2018- Uni vers INGREDI 01-16 ity of 00:00: [place] 00 Medical Branch GLUTEN DRUG Active Diarrhea 2018-0 Univers INGREDI 01-16 ity of 00:00: [place] 00 Medical Branch Wheat Allergy Active Amanda to [facility] substanc dic e Sports Medicin e Social History Social Habit Start Date Stop Date Quantity Comments Source Exposure to 2022-01-30 2022-02-09 Not sure [facility] SARS-CoV-2 00:00:00 15:19:00 [facility] (event) [place] Tobacco use and 2019-03-04 2019-03-04 Smokeless tobacco Un iversity of exposure 00:00:00 00:00:00 non-user [facility] Alcohol intake 2019-01-21 2019-01-21 Current drinker of [facility]ist 00:00:00 00:00:00 alcohol (finding) Hospita l Alcohol Comment 2019-01-16 2019-01-16 ocasionally Methodis t 00:00:00 00:00:00 Hospital Sex Ass[birth year] At [birth year] [facility] 00:00:00 00:00:00 Hospital Smoking Status Start Date Stop Date Source Never Smoker [facility] Medications Ordered Filled Start Stop Current Ordering Indication Dosage Frequency Signature Comments Components Source Medication Medication Date Date Medication? Clinician (SIG) Name Name ibuprofen 2021- No 600mg Take 600 Un maurisio 600 mg 9-18 09-18 mg by ity of tablet 17:05: 00:00 mouth [place] 41 :00 every 6 Medical (six) Branch hours as needed. ibuprofen 2021- No 600mg Take 600 Un maurisio 600 mg 9-18 09-18 mg by ity of tablet 17:05: 00:00 mouth [place] 41 :00 every 6 Medical (six) Branch hours as needed. meloxicam Yes 15mg Take 15 mg Un maurisio 15 mg 8-19 by mouth ity of tablet 15:29: in the [place] 37 morning. Medical Branch meloxicam Yes 15mg Take 15 mg Un maurisio 15 mg 8-19 by mouth ity of tablet 15:29: in the [place] 37 morning. Medical Branch levothyroxi Yes 150ug Take 150 U nivers ne 150 mcg 8-19 mcg by ity of tablet 15:29: mouth [place] 06 every Medical morning. Branch levothyroxi Yes 150ug Take 150 U nivers ne 150 mcg 8-19 mcg by ity of tablet 15:29: mouth [place] 06 every Medical morning. Branch Levothyroxi Yes [id number] 1{capsu Take 1 Univers ne 6-14 le} capsule by ity of (TIROSINT) 00:00: mouth [place] 137 mcg Cap 00 daily. Medica l Branch Levothyroxi Yes [id number] 1{capsu Take 1 Univers ne 6-14 le} capsule by ity of (TIROSINT) 00:00: mouth [place] 137 mcg Cap 00 daily. Medica l Branch levothyroxi Yes 125ug QD Take 125 M ethodi ne 7-[address] (SYNTHROID, 15:54: mouth Hospi ta LEVOXYL) 06 every l 125 mcg morning. tablet tramadol 50 tramadol 50 No 1 Q6H tramadol Amanda mg tablet mg tablet 50 mg Orth ope Take 1 Take 1 tablet dic tablet tablet Take 1 Sports every 6 every 6 tablet Medicin hours by hours by every 6 e oral route oral route hours by as needed. as needed. oral route for pain for pain as needed. for pain aspirin 81 aspirin 81 No 1 BID aspirin 81 Amanda mg mg mg [facility] tablet,bella tablet,bella tablet,del dic yed release yed release ayed S ports Take 1 Take 1 release Medicin tablet tablet Take 1 e twice a day twice a day tablet by oral by oral twice a route with route with day by meals for meals for oral route 30 days. to 30 days. to with meals prevent a prevent a for 30 blood clot blood clot days. to prevent a blood clot celecoxib celecoxib No 1capsul BID celecoxib Amanda 200 mg 200 mg e(s) 200 mg [facility] capsule capsule capsule dic Take 1 Take 1 Take 1 Sports capsule capsule capsule Medici n twice a day twice a day twice a e by oral by oral day by route for route for oral route 30 days. 30 days. for 30 days. Colace 100 Colace 100 No 1capsul BID Colace 100 Amanda mg capsule mg capsule e(s) mg capsule [facility] Take 1 Take 1 Take 1 dic capsule capsule capsule Sports twice a day twice a day twice a Medicin by oral by oral day by e route as route as oral route needed. for needed. for as needed. constipatio constipatio for n n constipati on cyclobenzap cyclobenzap No 1 TID cyclobenza Amanda rine 10 mg rine 10 mg lorenza 10 [facility] tablet Take tablet Take mg tablet dic 1 tablet 3 1 tablet 3 Take 1 S ports times a day times a day tablet 3 Medicin by oral by oral times a e route. route. day by oral route. gabapentin gabapentin No 1capsul TID gabapentin Amanda 300 mg 300 mg e(s) 300 mg [facility] capsule capsule capsule dic Take 1 Take 1 Take 1 Sports capsule 3 capsule 3 capsule 3 Medicin times a day times a day times a e by oral by oral day by route as route as oral route needed for needed for as needed 30 days. 30 days. for 30 for nerve for nerve days. for pain pain nerve pain hydrocodone hydrocodone No 1 Q6H hydrocodon Amanda 10 10 e 10 [facility] mg-acetamin mg-acetamin mg-acetami dic ophen 325 ophen 325 nophen 325 Sports mg tablet mg tablet mg tablet Medicin Take 1 Take 1 Take 1 e tablet tablet tablet every 6 every 6 every 6 hours by hours by hours by oral route oral route oral route as needed. as needed. as needed. for pain for pain for pain methocarbam methocarbam No 1 TID methocarba Amanda ol 500 mg ol 500 mg mol 500 mg [facility] tablet Take tablet Take tablet dic 1 tablet 3 1 tablet 3 Take 1 S ports times a day times a day tablet 3 Medicin by oral by oral times a e route as route as day by needed for needed for oral route 30 days. 30 days. as needed for muscle for muscle for 30 spasms spasms days. for muscle spasms minocycline minocycline No 1capsul TID minocyclin Amanda 100 mg 100 mg e(s) e 100 mg [facility] capsule capsule capsule dic Take 1 Take 1 Take 1 Sports capsule 3 capsule 3 capsule 3 Medicin times a day times a day times a e by oral by oral day by route for 7 route for 7 oral route days. days. for 7 days. ondansetron ondansetron No 1 Q8H ondansetro Amanda HCl 4 mg HCl 4 mg n HCl 4 mg O rthope tablet Take tablet Take tablet dic 1 tablet 1 tablet Take 1 Sport s every 8 every 8 tablet Medicin hours by hours by every 8 e oral route oral route hours by as needed. as needed. oral route for nausea for nausea as needed. for nausea tramadol 50 tramadol 50 No 1 Q6H tramadol Amanda mg tablet mg tablet 50 mg Orth ope Take 1 Take 1 tablet dic tablet tablet Take 1 Sports every 6 every 6 tablet Medicin hours by hours by every 6 e oral route oral route hours by as needed. as needed. oral route for pain for pain as needed. for pain cyclobenzap cyclobenzap No 1 TID cyclobenza Amanda rine 10 mg rine 10 mg lorenza 10 [facility] tablet Take tablet Take mg tablet dic 1 tablet 3 1 tablet 3 Take 1 S ports times a day times a day tablet 3 Medicin by oral by oral times a e route. route. day by oral route. aspirin 81 aspirin 81 No 1 BID aspirin 81 Amanda mg mg mg [facility] tablet,bella tablet,bella tablet,del dic yed release yed release ayed S ports Take 1 Take 1 release Medicin tablet tablet Take 1 e twice a day twice a day tablet by oral by oral twice a route with route with day by meals for meals for oral route 30 days. to 30 days. to with meals prevent a prevent a for 30 blood clot blood clot days. to prevent a blood clot celecoxib celecoxib No 1capsul BID celecoxib Amanda 200 mg 200 mg e(s) 200 mg [facility] capsule capsule capsule dic Take 1 Take 1 Take 1 Sports capsule capsule capsule Medici n twice a day twice a day twice a e by oral by oral day by route for route for oral route 30 days. 30 days. for 30 days. Colace 100 Colace 100 No 1capsul BID Colace 100 Amanda mg capsule mg capsule e(s) mg capsule [facility] Take 1 Take 1 Take 1 dic capsule capsule capsule Sports twice a day twice a day twice a Medicin by oral by oral day by e route as route as oral route needed. for needed. for as needed. constipatio constipatio for n n constipati on cyclobenzap cyclobenzap No 1 TID cyclobenza Amanda rine 10 mg rine 10 mg lorenza 10 [facility] tablet Take tablet Take mg tablet dic 1 tablet 3 1 tablet 3 Take 1 S ports times a day times a day tablet 3 Medicin by oral by oral times a e route. route. day by oral route. gabapentin gabapentin No 1capsul TID gabapentin Amanda 300 mg 300 mg e(s) 300 mg [facility] capsule capsule capsule dic Take 1 Take 1 Take 1 Sports capsule 3 capsule 3 capsule 3 Medicin times a day times a day times a e by oral by oral day by route as route as oral route needed for needed for as needed 30 days. 30 days. for 30 for nerve for nerve days. for pain pain nerve pain hydrocodone hydrocodone No 1 Q6H hydrocodon Amanda 10 10 e 10 [facility] mg-acetamin mg-acetamin mg-acetami dic ophen 325 ophen 325 nophen 325 Sports mg tablet mg tablet mg tablet Medicin Take 1 Take 1 Take 1 e tablet tablet tablet every 6 every 6 every 6 hours by hours by hours by oral route oral route oral route as needed. as needed. as needed. for pain for pain for pain methocarbam methocarbam No 1 TID methocarba Amanda ol 500 mg ol 500 mg mol 500 mg [facility] tablet Take tablet Take tablet dic 1 tablet 3 1 tablet 3 Take 1 S ports times a day times a day tablet 3 Medicin by oral by oral times a e route as route as day by needed for needed for oral route 30 days. 30 days. as needed for muscle for muscle for 30 spasms spasms days. for muscle spasms minocycline minocycline No 1capsul TID minocyclin Amanda 100 mg 100 mg e(s) e 100 mg [facility] capsule capsule capsule dic Take 1 Take 1 Take 1 Sports capsule 3 capsule 3 capsule 3 Medicin times a day times a day times a e by oral by oral day by route for 7 route for 7 oral route days. days. for 7 days. ondansetron ondansetron No 1 Q8H ondansetro Amanda HCl 4 mg HCl 4 mg n HCl 4 mg O rthope tablet Take tablet Take tablet dic 1 tablet 1 tablet Take 1 Sport s every 8 every 8 tablet Medicin hours by hours by every 8 e oral route oral route hours by as needed. as needed. oral route for nausea for nausea as needed. for nausea tramadol 50 tramadol 50 No 1 Q6H tramadol Amanda mg tablet mg tablet 50 mg Orth ope Take 1 Take 1 tablet dic tablet tablet Take 1 Sports every 6 every 6 tablet Medicin hours by hours by every 6 e oral route oral route hours by as needed. as needed. oral route for pain for pain as needed. for pain cyclobenzap cyclobenzap No 1 TID cyclobenza Amanda rine 10 mg rine 10 mg lorenza 10 [facility] tablet Take tablet Take mg tablet dic 1 tablet 3 1 tablet 3 Take 1 S ports times a day times a day tablet 3 Medicin by oral by oral times a e route. route. day by oral route. aspirin 81 aspirin 81 No 1 BID aspirin 81 Amanda mg mg mg [facility] tablet,bella tablet,bella tablet,del dic yed release yed release ayed S ports Take 1 Take 1 release Medicin tablet tablet Take 1 e twice a day twice a day tablet by oral by oral twice a route with route with day by meals for meals for oral route 30 days. to 30 days. to with meals prevent a prevent a for 30 blood clot blood clot days. to prevent a blood clot Celebrex Celebrex No 1capsul BID Celebrex Amanda 200 mg 200 mg e(s) 200 mg [facility] capsule capsule capsule dic Take 1 Take 1 Take 1 Sports capsule capsule capsule Medici n twice a day twice a day twice a e by oral by oral day by route with route with oral route meals for meals for with meals 14 days. 14 days. for 14 for pain for pain days. for pain Colace 100 Colace 100 No 1capsul BID Colace 100 Amanda mg capsule mg capsule e(s) mg capsule [facility] Take 1 Take 1 Take 1 dic capsule capsule capsule Sports twice a day twice a day twice a Medicin by oral by oral day by e route as route as oral route needed. for needed. for as needed. constipatio constipatio for n n constipati on cyclobenzap cyclobenzap No 1 TID cyclobenza Amanda rine 10 mg rine 10 mg lorenza 10 [facility] tablet Take tablet Take mg tablet dic 1 tablet 3 1 tablet 3 Take 1 S ports times a day times a day tablet 3 Medicin by oral by oral times a e route. route. day by oral route. gabapentin gabapentin No 1capsul TID gabapentin Amanda 300 mg 300 mg e(s) 300 mg [facility] capsule capsule capsule dic Take 1 Take 1 Take 1 Sports capsule 3 capsule 3 capsule 3 Medicin times a day times a day times a e by oral by oral day by route as route as oral route needed. for needed. for as needed. nerve pain nerve pain for nerve pain hydrocodone hydrocodone No 1 Q6H hydrocodon Amanda 10 10 e 10 [facility] mg-acetamin mg-acetamin mg-acetami dic ophen 325 ophen 325 nophen 325 Sports mg tablet mg tablet mg tablet Medicin Take 1 Take 1 Take 1 e tablet tablet tablet every 6 every 6 every 6 hours by hours by hours by oral route oral route oral route as needed. as needed. as needed. for pain for pain for pain methocarbam methocarbam No 1 TID methocarba Amanda ol 500 mg ol 500 mg mol 500 mg [facility] tablet Take tablet Take tablet dic 1 tablet 3 1 tablet 3 Take 1 S ports times a day times a day tablet 3 Medicin by oral by oral times a e route as route as day by needed. for needed. for oral route muscle muscle as needed. spasms spasms for muscle spasms minocycline minocycline No 1capsul Q12H minocyclin Amanda 100 mg 100 mg e(s) e 100 mg [facility] capsule capsule capsule dic Take 1 Take 1 Take 1 Sports capsule capsule capsule Medici n every 12 every 12 every 12 e hours by hours by hours by oral route oral route oral route for 7 days. for 7 days. for 7 antibiotic antibiotic days. antibiotic ondansetron ondansetron No 1 Q8H ondansetro Amanda HCl 4 mg HCl 4 mg n HCl 4 mg O rthope tablet Take tablet Take tablet dic 1 tablet 1 tablet Take 1 Sport s every 8 every 8 tablet Medicin hours by hours by every 8 e oral route oral route hours by as needed. as needed. oral route for nausea for nausea as needed. for nausea tramadol 50 tramadol 50 No 1 Q6H tramadol Amanda mg tablet mg tablet 50 mg Orth ope Take 1 Take 1 tablet dic tablet tablet Take 1 Sports every 6 every 6 tablet Medicin hours by hours by every 6 e oral route oral route hours by as needed. as needed. oral route for pain for pain as needed. for pain aspirin 81 aspirin 81 No 1 BID aspirin 81 Amanda mg mg mg [facility] tablet,bella tablet,bella tablet,del dic yed release yed release ayed S ports Take 1 Take 1 release Medicin tablet tablet Take 1 e twice a day twice a day tablet by oral by oral twice a route with route with day by meals for meals for oral route 30 days. to 30 days. to with meals prevent a prevent a for 30 blood clot blood clot days. to prevent a blood clot Celebrex Celebrex No 1capsul BID Celebrex Amanda 200 mg 200 mg e(s) 200 mg [facility] capsule capsule capsule dic Take 1 Take 1 Take 1 Sports capsule capsule capsule Medici n twice a day twice a day twice a e by oral by oral day by route with route with oral route meals for meals for with meals 14 days. 14 days. for 14 for pain for pain days. for pain Colace 100 Colace 100 No 1capsul BID Colace 100 Amanda mg capsule mg capsule e(s) mg capsule [facility] Take 1 Take 1 Take 1 dic capsule capsule capsule Sports twice a day twice a day twice a Medicin by oral by oral day by e route as route as oral route needed. for needed. for as needed. constipatio constipatio for n n constipati on cyclobenzap cyclobenzap No 1 TID cyclobenza Amanda rine 10 mg rine 10 mg lorenza 10 [facility] tablet Take tablet Take mg tablet dic 1 tablet 3 1 tablet 3 Take 1 S ports times a day times a day tablet 3 Medicin by oral by oral times a e route. route. day by oral route. gabapentin gabapentin No 1capsul TID gabapentin Amanda 300 mg 300 mg e(s) 300 mg [facility] capsule capsule capsule dic Take 1 Take 1 Take 1 Sports capsule 3 capsule 3 capsule 3 Medicin times a day times a day times a e by oral by oral day by route as route as oral route needed. for needed. for as needed. nerve pain nerve pain for nerve pain hydrocodone hydrocodone No 1 Q6H hydrocodon Amanda 10 10 e 10 [facility] mg-acetamin mg-acetamin mg-acetami dic ophen 325 ophen 325 nophen 325 Sports mg tablet mg tablet mg tablet Medicin Take 1 Take 1 Take 1 e tablet tablet tablet every 6 every 6 every 6 hours by hours by hours by oral route oral route oral route as needed. as needed. as needed. for pain for pain for pain methocarbam methocarbam No 1 TID methocarba Amanda ol 500 mg ol 500 mg mol 500 mg [facility] tablet Take tablet Take tablet dic 1 tablet 3 1 tablet 3 Take 1 S ports times a day times a day tablet 3 Medicin by oral by oral times a e route as route as day by needed. for needed. for oral route muscle muscle as needed. spasms spasms for muscle spasms minocycline minocycline No 1capsul Q12H minocyclin Amanda 100 mg 100 mg e(s) e 100 mg [facility] capsule capsule capsule dic Take 1 Take 1 Take 1 Sports capsule capsule capsule Medici n every 12 every 12 every 12 e hours by hours by hours by oral route oral route oral route for 7 days. for 7 days. for 7 antibiotic antibiotic days. antibiotic ondansetron ondansetron No 1 Q8H ondansetro Amanda HCl 4 mg HCl 4 mg n HCl 4 mg O r[facility]ope tablet Take tablet Take tablet dic 1 tablet 1 tablet Take 1 Sport s every 8 every 8 tablet Medicin hours by hours by every 8 e oral route oral route hours by as needed. as needed. oral route for nausea for nausea as needed. for nausea tramadol 50 tramadol 50 No 1 Q6H tramadol Amanda mg tablet mg tablet 50 mg Orth ope Take 1 Take 1 tablet dic tablet tablet Take 1 Sports every 6 every 6 tablet Medicin hours by hours by every 6 e oral route oral route hours by as needed. as needed. oral route for pain for pain as needed. for pain aspirin 81 aspirin 81 No 1 BID aspirin 81 Amanda mg mg mg [facility] tablet,bella tablet,bella tablet,del dic yed release yed release ayed S ports Take 1 Take 1 release Medicin tablet tablet Take 1 e twice a day twice a day tablet by oral by oral twice a route with route with day by meals for meals for oral route 30 days. to 30 days. to with meals prevent a prevent a for 30 blood clot blood clot days. to prevent a blood clot celecoxib celecoxib No celecoxib Amanda 200 mg 200 mg 200 mg [facility] capsule capsule capsule dic TAKE 1 TAKE 1 TAKE 1 Sports CAPSULE BY CAPSULE BY CAPSULE BY Medicin MOUTH TWICE MOUTH TWICE MOUTH e A DAY WITH A DAY WITH TWICE A MEALS MEALS DAY WITH MEALS Colace 100 Colace 100 No 1capsul BID Colace 100 Amanda mg capsule mg capsule e(s) mg capsule [facility] Take 1 Take 1 Take 1 dic capsule capsule capsule Sports twice a day twice a day twice a Medicin by oral by oral day by e route as route as oral route needed. for needed. for as needed. constipatio constipatio for n n constipati on cyclobenzap cyclobenzap No 1 TID cyclobenza Amanda rine 10 mg rine 10 mg loernza 10 [facility] tablet Take tablet Take mg tablet dic 1 tablet 3 1 tablet 3 Take 1 S ports times a day times a day tablet 3 Medicin by oral by oral times a e route. route. day by oral route. gabapentin gabapentin No gabapentin Amanda 300 mg 300 mg 300 mg [facility] capsule capsule capsule dic TAKE 1 TAKE 1 TAKE 1 Sports CAPSULE BY CAPSULE BY CAPSULE BY Medicin MOUTH 3 MOUTH 3 MOUTH 3 e TIMES A DAY TIMES A DAY TIMES A NEEDED NEEDED DAY NEEDED hydrocodone hydrocodone No 1 Q6H hydrocodon Amanda 10 10 e 10 [facility] mg-acetamin mg-acetamin mg-acetami dic ophen 325 ophen 325 nophen 325 Sports mg tablet mg tablet mg tablet Medicin Take 1 Take 1 Take 1 e tablet tablet tablet every 6 every 6 every 6 hours by hours by hours by oral route oral route oral route as needed. as needed. as needed. for pain for pain for pain methocarbam methocarbam No methocarba Amanda ol 500 mg ol 500 mg mol 500 mg [facility] tablet TAKE tablet TAKE tablet dic 1 TABLET BY 1 TABLET BY TAKE 1 Sports MOUTH 3 MOUTH 3 TABLET BY Medi manuel TIMES A DAY TIMES A DAY MOUTH 3 e NEEDED NEEDED TIMES A DAY NEEDED minocycline minocycline No 1capsul Q12H minocyclin Amanda 100 mg 100 mg e(s) e 100 mg [facility] capsule capsule capsule dic Take 1 Take 1 Take 1 Sports capsule capsule capsule Medici n every 12 every 12 every 12 e hours by hours by hours by oral route oral route oral route for 7 days. for 7 days. for 7 antibiotic antibiotic days. antibiotic ondansetron ondansetron No 1 Q8H ondansetro Amanda HCl 4 mg HCl 4 mg n HCl 4 mg O [facility]ope tablet Take tablet Take tablet dic 1 tablet 1 tablet Take 1 Sport s every 8 every 8 tablet Medicin hours by hours by every 8 e oral route oral route hours by as needed. as needed. oral route for nausea for nausea as needed. for nausea Immunizations Ordered Immunization Filled Immunization Date Status Commen ts Source Name Name SynchroID-19 MRNA 2020-09-19 Completed Meth odist VACCINATION 00:00:00 [facility] COVID-19 MRNA 2020-08-29 Completed Meth odist VACCINATION 00:00:00 Hospital Vital Signs Vital Name Observation Time Observation Value Comments Source Height 2022-09-03 00:00:00 66 [in_i] [facility] BMI (Body Mass 2022-09-03 00:00:00 31.5 kg/m2 [facility]) [facility] Medicine Body Weight 2022-09-03 00:00:00 195 [lb_av] [facility] Height 2022-08-13 00:00:00 66 [in_i] [facility] BMI (Body Mass 2022-08-13 00:00:00 31.5 kg/m2 [facility] Body Weight 2022-08-13 00:00:00 195 [lb_av] [facility] Height 2022-07-16 00:00:00 66 [in_i] [facility] BMI (Body Mass 2022-07-16 00:00:00 31.5 kg/m2 [facility]) [facility] Medicine Body Weight 2022-07-16 00:00:00 195 [lb_av] [facility] Height 2022-05-21 00:00:00 66 [in_i] [facility] BMI (Body Mass 2022-05-21 00:00:00 31.5 kg/m2 [facility]) Sports Medicine Body Weight 2022-05-21 00:00:00 195 [lb_av] [facility] Systolic blood 2022-02-09 20:27:00 126 mm[Hg] [facility] pressure [facility] Diastolic blood 2022-02-09 20:27:00 83 mm[Hg] [facility] pressure [facility] Heart rate 2022-02-09 20:27:00 83 /min [facility] Body height 2022-02-09 20:27:00 167.6 cm [facility] Body weight 2022-02-09 20:27:00 91.627 kg [facility] BMI 2022-02-09 20:27:00 32.60 kg/m2 [facility] Oxygen saturation 2022-02-09 20:27:00 98 /min [facility] in Arterial blood Medical Br anch by Pulse oximetry Procedures Procedure Date / Time Performing Clinician Source Performed XR, knee, 1 or 2 view 2022-08-24 00:00:00 [facility] XR, knee, 3 view 2022-08-13 00:00:00 [facility] XR, knee, 4 or more 2022-05-21 00:00:00 [facility] O rthopedic view Sports Medicine Appendectomy [facility] Carpal Tunnel Surgery [facility] hopedic [facility] Medicine Gallbladder Surgery [facility] Hysterectomy [facility] Knee Surgery [facility] Neck Surgery [facility] Wrist Surgery [facility] Plan of Care Planned Activity Planned Date Details Comments Source Future Scheduled Test 2022-06-17 Screening for [facility] 12:23:34 malignant neoplasm of cervix (procedure) [code = [id number]] Future Scheduled Test 2022-06-17 BREAST CANCER [facility] 12:23:34 SCREENING [code = BREAST CANCER SCREENING] Future Scheduled Test 2022-06-17 [facility] 12:23:34 SCREENING [code = COLONOSCOPY SCREENING] Future Scheduled Test 2022-06-17 SHINGLES VACCINES (1 [facility] 12:23:34 of 2) [code = SHINGLES VACCINES (1 of 2)] Future Scheduled Test 2022-06-17 COVID-19 VACCINE (3 [facility] 12:23:34 - Booster for Pfizer series) [code = COVID-19 VACCINE (3 - Booster for Pfizer series)] Future Scheduled Test 2022-06-17 INFLUENZA VACCINE M [facility] 12:23:34 [code = INFLUENZA VACCINE] Future Appointment 2022-09-24 [place], [address] A [facility] 13:30:00 [facility] Sports M edicine [address]; , [place] [address] Instructions [facility] Encounters Start End Encounter Admission Attending Care Care Encounter Source Date/Time Date/Time Type Type Clinicians Facility Department ID 2022-06-05 Inpatient HAIM Fisher, HCATO SURG [id number] [facility] 16:00:[address] Orth[facility] dic [facility] l 2022-11-16 2022-11-16 Outpatient [place] [facility] [id number] Univers 13:00:00 13:00:00 [facility]-03 2022-09-03 Gisselle ADAIR [place] - Ortho [id number] Amanda 00:00:00 00:00:00 Nahomi Garcia - Josué meyer PA: [id number] FOG_Ofc dic [facility] Medicin [address], [place] [address] , Ph. [phone] 2022-08-24 2022-08-24 Outpatient [place] [facility] [id number] Univers 15:30:00 15:30:00 SERJIO cantrell [facility] 2022-08-24 2022-08-24 Outpatient FOG_Burke_R AOSM AO [id number] Amanda 00:00:00 00:00:00 Faustina [id number] Ortho pe dic Sports Medicin e 2022-08-24 2022-08-24 Outpatient FOG_Burke_R AOSM AOSM [id number] Amanda 00:00:00 00:00:00 Faustina [id number] Ortho pe dic Sports Medicin e 2022-08-24 2022-08-24 Vernon Llamas [facility] [place] - Ortho 3 Amanda 00:00:00 00:00:00 MD Babatunde: Nahomi Mcbride [address] [address] FOG_Ofc dic [place], [employer] [facility] Sport [address], [place] [address] , Ph. [phone] 2022-08-23 2022-08-23 Outpatient FOG_Burke_R AOSM AOSM [id number] Amanda 00:00:00 00:00:00 Faustina [id number] Ortho pe dic Sports Medicin e 2022-08-13 2022-08-13 Outpatient FOG_Burke_R AOSM AOSM [id number] Amanda 00:00:00 00:00:00 Faustina [id number] Ortho pe dic Sports Medicin e 2022-08-13 2022-08-13 [facility] - Ortho [id number] Amanda 00:00:00 00:00:00 TRISHA Fisher [facility] - Orthope MD: [id number] FOG_Ofc dic [address] [address] , Ph. [phone] 2022-07-16 2022-07-16 [facility] - Ortho [id number] Amanda 00:00:00 00:00:00 TRISHA Fisher [place] [place] - Orthope MD: [id number] FOG_Ofc dic [facility] Medicin [address] [place] [address] , Ph. [phone] 2022-07-08 2022-07-08 Outpatient FOG_Burke_R AOSM AOSM [id number] Amanda 00:00:00 00:00:00 Faustina [id number] Ortho pe dic Sports Medicin e 2022-07-08 2022-07-08 Outpatient FOG_Burke_R AOSM AOSM [id number] Amanda 00:00:00 00:00:00 Faustina [id number] Ortho pe dic Sports Medicin e 2022-07-08 2022-07-08 Outpatient FOG_Burke_R AOSM AOSM [id number] Amanda 00:00:00 00:00:00 Faustina [id number] Ortho pe dic Sports Medicin e 2022-07-08 2022-07-08 Outpatient FOG_Burke_R AOSM AOSM [id number] Amanda 00:00:00 00:00:00 Faustina [id number] Ortho pe dic Sports Medicin e 2022-07-04 2022-07-04 Outpatient FOG_Burke_R AOSM AOSM [id number] Amanda 00:00:00 00:00:00 Faustina [id number] Ortho pe dic Sports Medicin e 2022-07-04 2022-07-04 Outpatient FOG_Burke_R AOSM AOSM [id number] Amanda 00:00:00 00:00:00 Faustina [id number] Ortho pe dic Sports Medicin e 2022-07-02 2022-07-02 [place] - Ortho [id number] Amanda 00:00:00 00:00:00 TRISHA Fisher [facility] Orthope MD: [id number] FOG_Surgery dic [address] , [place], [place] [address] , Ph. [phone] 2022-06-29 2022-06-29 Outpatient FOG_Burke_R AOSM AOSM [id number] Amanda 00:00:00 00:00:00 Faustina [id number] Ortho pe dic Sports Medicin e 2022-05-22 2022-05-22 Outpatient FOG_Burke_R AOSM AOSM [id number] Amanda 00:00:00 00:00:00 Faustina [id number] Ortho pe dic Sports Medicin e 2022-05-21 2022-05-21 Outpatient FOG_Burke_R AOSM AOSM [id number] Amanda 00:00:00 00:00:00 Faustina [id number] Ortho pe dic Sports Medicin e 2022-05-21 2022-05-21 [place] - Ortho [id number] Amanda 00:00:00 00:00:00 TRISHA Fisher [place] [place] - Orthope MD: [id number] FOG_Ofc dic [facility] Medicin [address], [place] [address] , Ph. [phone] 2022-05-17 2022-05-17 Outpatient FOG_Burke_R AOSM AOSM [id number] Amanda 00:00:00 00:00:00 Faustina [id number] Ortho pe dic Sports Medicin e 2022-05-02 2022-05-02 Outpatient FOG_Burke_R AOSM AOSM [id number] Amanda 00:00:00 00:00:00 Faustina [id number] Ortho pe dic Sports Medicin e 2022-05-02 2022-05-02 Serjio Grande [facility] [place] - Ortho [id number] Amanda 00:00:00 00:00:00 MD Ml: Nahomi davies [address] FOG_Ofc dic [facility] Medicin [address], [place] [address] , Ph. [phone] 2022-04-29 2022-04-29 Outpatient FOG_Burke_R AOSM AOSM [id number] Amanda 00:00:00 00:00:00 Faustina [id number] Ortho pe dic Sports Medicin e 2022-04-20 2022-04-20 Outpatient FOG_Burke_R AOSM AOSM [id number] Amanda 00:00:00 00:00:00 Faustina [id number] Ortho pe dic Sports Medicin e 2022-02-09 2022-02-09 Show Card Writer Lab, Ang - Db [facility] [id number] [facility] 16:15:00 16:30:00 Visit Wright, Serjio [id number] [id number] Dale as MAURICE?BLEA [phone] [address] MEDICAL OFFICE BUILDING 2022-02-09 2022-02-09 [facility] [id number] Univers 16:15:00 16:15:00 SERJIO [facility] 2022-02-09 2022-02-09 [facility] [id number] Univers 15:00:00 16:01:21 Visit Serjio [facility] [id number] it y of DOS RIOS [id number] Dale as MAURICE?BLEA [phone] Ri jeaninecaryn [address] MEDICAL OFFICE BUILDING 2022-02-09 2022-02-09 Outpatient R [facility] [id number] Univers 15:00:00 16:01:21 SERJIO [facility] 2022-02-09 2022-02-09 Orders Doctor UDAY [id number] Univers 00:00:00 00:00:00 Only Unassigned, KHALIF [id number] [facility] [id number] Dale as [phone] [address] 2021-03-07 2021-03-07 [facility] [id number] Univers 15:00:00 15:00:00 Surgery [facility] 2020-11-22 2020-11-22 [facility] [id number] Univers 11:00:00 11:00:00 Surgery [facility] 2020-09-19 2020-09-19 Outpatient DINESH [facility] [id number] [place] 00:00:00 00:00:00 CRISTINA [address] 2020-08-29 2020-08-29 Outpatient [facility] [id number] [place] 00:00:00 00:00:[address] 2020-06-22 2020-06-22 Outpatient R [facility] [id number] Univers 09:30:00 09:30:00 [facility] 2020-03-28 2020-03-28 Outpatient R [facility] [id number] Univers 16:15:00 [facility] 2020-03-23 2020-03-23 Outpatient R [facility] [id number] Univers 13:30:00 13:30:00 AIDE cantrell [facility] 2019-03-04 2019-03-04 Office Steve [facility] [id number] 14:56:41 15:11:41 Visit [facility] [id number] Surgical [id number] Specialti [phone] [address] Results This patient has no known results.
[2022-09-14 08:15] LABS: Hematocrit 43.9 % (36.0-45.0); Lymphocytes % 33.3 % (15.3-44.8); MCV 91.9 fL (80-100); MPV 8.4 fL (7.6-11.3); RBC Red Blood Cell Count 4.78 M/uL (3.86-4.86)
[2022-09-14 08:40] LABS: Albumin 3.9 g/dL (3.4-5.0); Bilirubin Total 0.4 mg/dL (0.2-1.0); Magnesium 2.3 mg/dL (1.6-2.4); Potassium 3.8 mEq/L (3.5-5.1); Protein, Total 6.9 g/dL (6.4-8.2); Thyroid Stimulating Hormone 0.038 uIU/mL (0.358-3.740); Troponin High Sensitivity 3.7 pg/mL (<58.9)
--- NOTE | 2022-09-14 09:24 | RAD REPORT ---
EXAM DESCRIPTION: RAD - Chest Single View - 09/14/2022 9:17 am CLINICAL HISTORY: PALPITATIONS Chest pain. COMPARISON: Chest Pa And Lat (2 Views) dated 11/10/2019; Chest Single View dated 09/07/2018 FINDINGS: Portable technique limits examination quality. The lungs are grossly clear. The heart is normal in size. No displaced fractures.Cervical hardware pl ate. IMPRESSION: No acute intrathoracic process suspected.
--- NOTE | 2022-09-14 09:53 | ER ---
Nurse's Notes [facility] Name: Annamarie Miles Age: 56 yrs Sex: Female : 1965 Arrival Date: 09/14/2022 Time: 07:56 Bed 14 Private MD: Diagnosis: Palpitations Presentation: 09/14 07:56 Chief complaint: Patient states: Palpitations, fast HR, weakness started while at work ll1 just [employer]. Did some vagal maneuvers, HR feels better now. History of SVT. Her apple watch reports HR 170's EMS states: VSS HR 95-100 now. 20 L AC NS TKO. Coronavirus screen: Vaccine status: Patient reports receiving the 2nd dose of the covid vaccine. Client denies travel out of the [place] in the last 14 days. At this time, the client does not indicate any symptoms associated with coronavirus-19. Ebola Screen: Patient denies travel to an Ebola-affected area in the 21 days before illness onset. Initial Sepsis Screen: Does the patient meet any 2 criteria? No. Patient's initial sepsis screen is negative. Does the patient have a suspected source of infection? No. Patient's initial sepsis screen is negative. Risk Assessment: Do you want to hurt yourself or someone else? Patient reports no desire to harm self or others. Onset of symptoms was September 14, 2022. 07:56 Method Of Arrival: EMS ll1 07:56 Acuity: MICHELLE 3 ll1 Triage Assessment: 08:00 General: Appears in no apparent distress. Behavior is calm, cooperative, appropriate ll1 for age. Pain: Denies pain. Cardiovascular: Reports fatigue, palpitations. Historical: - Allergies: 07:59 tramadol; ll1 07:59 Codeine; ll1 - PMHx: 07:59 Hashimotos; V Tach; SVT; fibroids; ll1 - PSHx: 07:59 ablation; Appendectomy; Cholecystectomy; hysterectomy; total knee; ll1 - Immunization history:: Client reports receiving the 2nd dose of the Covid vaccine. - Social history:: Smoking status: Patient denies any tobacco usage or history of. - Family history:: not pertinent. Screenin:09 [facility] ED Fall Risk Assessment (Adult) Score/Fall Risk Level 0 - 2 = Low Risk ll1 Oriented to surroundings, Maintained a safe environment, Educated pt \T\ family on fall prevention, incl call for assistance when getting out of bed, Hourly rounding (assess needs \T\ fall precautionary measures) done. Abuse screen: Denies threats or abuse. Nutritional screening: No deficits noted. Tuberculosis screening: No symptoms or risk factors identified. Assessment: 08:14 Reassessment: No changes from previously documented assessment. Patient and/or family ll1 updated on plan of care and expected duration. Pain level reassessed. Patient is alert, oriented x 3, equal unlabored respirations, skin warm/dry/pink. 09:30 Reassessment: No changes from previously documented assessment. Patient and/or family ll1 updated on plan of care and expected duration. Pain level reassessed. Patient is alert, oriented x 3, equal unlabored respirations, skin warm/dry/pink. 10:09 Reassessment: No changes from previously documented assessment. Patient and/or family ll1 updated on plan of care and expected duration. Pain level reassessed. Patient is alert, oriented x 3, equal unlabored respirations, skin warm/dry/pink. Vital Signs: 07:56 BP 126 / 94; Pulse 96; Resp 16; Temp 98.4; Pulse Ox 100% on R/A; Weight 87.09 kg; ll1 Height 5 ft. 6 in. ; Pain 0/10; 08:36 BP 128 / 90; Pulse 90; Resp 16; Pulse Ox 100% ; ll1 09:39 BP 129 / 92; Pulse 85; ll1 10:08 BP 119 / 87; Pulse 76; Resp 15; Pulse Ox 100% ; Pain 0/10; ll1 07:56 Body Mass Index 30.99 (87.09 kg, 167.64 cm) ll1 07:56 Pain Scale: Adult ll1 10:08 Pain Scale: Adult ll1 ED Course: 07:56 Patient arrived in ED. ll1 07:59 Triage completed. ll1 08:00 Arm band placed on Patient placed in an exam room, on a stretcher. ll1 08:00 Maintain EMS IV. Dressing intact. Good blood return noted. Site clean \T\ dry. Gauge \T\ ll 1 site: 20 L AC. 08:01 Lobito Ley MD is Attending Physician. rt 08:01 Jhonatan Balderas RN is Primary Nurse. ll1 09:19 Chest Single View XRAY In Process Unspecified. EDMS 09:52 Carl Padgett MD is Referral Physician. rt 10:08 No provider procedures requiring assistance completed. IV discontinued, intact, ll1 bleeding controlled, No redness/swelling at site. Pressure dressing applied. 10:09 Patient has correct armband on for positive identification. Bed in low position. Call ll1 light in reach. Client placed on continuous cardiac and pulse oximetry monitoring. NIBP monitoring applied. guard immigration on. Administered Medications: No medications were administered Medication: 10: VIS not applicable for this client. ll1 Outcome: :52 Discharge ordered by . rt 10:09 Discharged to home ambulatory. ll1 10:09 Condition: stable 10:09 Discharge instructions given to patient, Instructed on discharge instructions, follow up and referral plans. Demonstrated understanding of instructions, follow-up care. 10:10 Patient left the ED. ll1 Signatures: Dispatcher [employer] Jhonatan Arrieta RN RN ll1 Lobito Ley MD MD rt
--- NOTE | 2022-09-14 09:53 | EDPHYS ---
Physician Documentation [facility] Name: Annamarie Miles Age: 56 yrs Sex: Female : 1965 Arrival Date: 09/14/2022 Time: 07:56 Bed 14 Private MD: ED Physician Lobito Ley HPI: 09/14 08:06 This 56 yrs old Female presents to ER via EMS with complaints of Palpitations. rt 08:06 Patient with history of SVT status post ablation and 2019 presents to the ED with rt palpitations while at work. She stated that her watch told her that her heart rate was in the 170s. She had palpitations at that time consistent with prior episodes of SVT. She performed vagal maneuvers before EMS arrived, this terminated the palpitations, she states that she only feels fatigued right now. Never had any chest pain. Denies other acute complaints at this time. Symptoms are moderate in severity, no other aggravating or alleviating factors.. Historical: - Allergies: 07:59 tramadol; ll1 07:59 Codeine; ll1 - PMHx: 07:59 Hashimotos; V Tach; SVT; fibroids; ll1 - PSHx: 07:59 ablation; Appendectomy; Cholecystectomy; hysterectomy; total knee; ll1 - Immunization history:: Client reports receiving the 2nd dose of the Covid vaccine. - Social history:: Smoking status: Patient denies any tobacco usage or history of. - Family history:: not pertinent. ROS: 08:06 Respiratory: Negative for shortness of breath, cough, wheezing, and pleuritic chest rt pain, Abdomen/GI: Negative for abdominal pain, nausea, vomiting, diarrhea, and constipation, MS/Extremity: Negative for injury and deformity, Skin: Negative for injury, rash, and discoloration, Neuro: Negative for headache, weakness, numbness, tingling, and seizure, Psych: Negative for depression, anxiety, suicide ideation, homicidal ideation, and hallucinations. 08:06 Constitutional: Positive for fatigue, Negative for fever. 08:06 Cardiovascular: Positive for palpitations, Negative for chest pain. Exam: 08:06 Constitutional: This is a well developed, well nourished patient who is awake, alert, rt and in no acute distress. Head/Face: Normocephalic, atraumatic. Chest/axilla: Normal chest wall appearance and motion. Nontender with no deformity. No lesions are appreciated. Cardiovascular: Regular rate and rhythm with a normal S1 and S2. No gallops, murmurs, or rubs. Normal PMI, no JVD. No pulse deficits. Respiratory: Lungs have equal breath sounds bilaterally, clear to auscultation and percussion. No rales, rhonchi or wheezes noted. No increased work of breathing, no retractions or nasal flaring. Abdomen/GI: Soft, non-tender, with normal bowel sounds. No distension or tympany. No guarding or rebound. No evidence of tenderness throughout. Skin: Warm, dry with normal turgor. Normal color with no rashes, no lesions, and no evidence of cellulitis. MS/ Extremity: Pulses equal, no cyanosis. Neurovascular intact. Full, normal range of motion. Neuro: Awake and alert, GCS 15, oriented to person, place, time, and situation. Cranial nerves II-XII grossly intact. Motor strength 5/5 in all extremities. Sensory grossly intact. Cerebellar exam normal. Normal gait. Psych: Awake, alert, with orientation to person, place and time. Behavior, mood, and affect are within normal limits. 08:06 ECG was reviewed by the Attending Physician. Vital Signs: 07:56 BP 126 / 94; Pulse 96; Resp 16; Temp 98.4; Pulse Ox 100% on R/A; Weight 87.09 kg; ll1 Height 5 ft. 6 in. ; Pain 0/10; 08:36 BP 128 / 90; Pulse 90; Resp 16; Pulse Ox 100% ; ll1 09:39 BP 129 / 92; Pulse 85; ll1 10:08 BP 119 / 87; Pulse 76; Resp 15; Pulse Ox 100% ; Pain 0/10; ll1 07:56 Body Mass Index 30.99 (87.09 kg, 167.64 cm) ll1 07:56 Pain Scale: Adult ll1 10:08 Pain Scale: Adult ll1 MDM: 08:01 Patient medically screened. rt 09:52 Differential diagnosis: Acute coronary syndrome, A-fib, SVT, electrolyte disturbance, rt symptomatic thyrotoxicosis. Data reviewed: vital signs, nurses notes, lab test result(s), EKG, radiologic studies. Consideration of Admission/Observation Escalation of care including admission/observation considered. Test considered but Not performed: CT: Low suspicion for PE, CT angiogram not indicated. Care significantly affected by the following chronic conditions: SVT status post ablation. Counseling: I had a detailed discussion with the patient and/or guardian regarding: the historical points, exam findings, and any diagnostic results supporting the discharge/admit diagnosis, lab results, radiology results, the need for outpatient follow up, to return to the emergency department if symptoms worsen or persist or if there are any questions or concerns that arise at home. ED course: Patient reported a small mount of chest pain which he attributes to having the fast heart rate. Given this, I offered the patient aspirin, for repeat troponin trending. Patient states that she does not wish to have this performed, states that she wishes to go home and will follow up states that she feels that she is fine. The patient will return if she develops any worsening symptoms or new concerning symptoms. 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 09/14 08:02 Order name: CBC with Diff; Complete Time: 08:43 rt 09/14 08:02 Order name: CMP; Complete Time: 08:43 rt 09/14 08:02 Order name: Troponin High Sensitivity; Complete Time: 08:43 rt 09/14 08:02 Order name: Magnesium; Complete Time: 08:43 rt 09/14 08:02 Order name: TSH; Complete Time: 08:43 rt 09/14 08:43 Order name: T4 Free; Complete Time: 09:11 rt 09/14 08:43 Order name: Chest Single View XRAY; Complete Time: 09:25 rt 09/14 08:02 Order name: EKG; Complete Time: 08:02 rt 09/14 08:02 Order name: EKG - Nurse/Tech; Complete Time: 08:06 rt EC:06 Rate is 89 beats/min. Rhythm is regular, Normal Sinus Rhythm with No ectopy. QRS [place] rt is Normal. IL interval is normal. QRS interval is normal. QT interval is normal. No Q waves. T waves are Normal. No ST changes noted. Administered Medications: No medications were administered Disposition Summary: 09/14/22 09:52 Discharge Ordered Location: Home rt Problem: new rt Symptoms: have improved rt Condition: Stable rt Diagnosis - Palpitations rt Followup: rt - With: Private Physician - When: 2 - 3 days - Reason: Followup: rt - With: Carl Padgett MD - When: 2 - 3 days - Reason: Discharge Instructions: - Discharge Summary Sheet rt - Atrial Fibrillation rt - Palpitations rt Forms: - Work release form bd - Medication Reconciliation Form rt - Thank You Letter rt - Antibiotic Education rt - Prescription Opioid Use rt Signatures: Dispatcher [employer] Jhonatan Arrieta RN RN ll1 Lobito Ley MD MD rt
[2022-09-14 10:14] VITALS: TEMP 98.4; O2SAT 100
[2022-09-14 10:24] VITALS: BP 119/87
--- NOTE | 2022-09-17 12:36 | EKG ---
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
== END 2022-09-14 10:10 | disposition home or self-care (01) ==
LOC: ER 07:51
DX: R00.2 Palpitations (principal); R53.83 Other fatigue; Z88.5 Allergy status to narcotic agent
CPT/HCPCS: 36415; 71045; 80053; 83735; 84439; 84443; 84484; 85025; 93005; 99284